=== PATIENT | female | born 2000 | race Caucasian/White ===

== ENCOUNTER 2021-03-06 18:24 | Emergency (ER) | payer MEDICAID ==
[~2021-03-06] VITALS: Ht 170.2 cm; Wt 47.0 kg
[2021-03-06] MEDS ORDERED: METOCLOPRAMIDE HCL 10MG/2ML VIAL IV STA (21:38)
[2021-03-06] MEDS ORDERED: VISCOUS LIDOCAINE 2% 15 ML UDC PO STA (21:38)
[2021-03-06] MEDS ORDERED: KETOROLAC 30MG/ML VIAL IV STA (21:38)
[2021-03-06] MEDS ORDERED: MAGNESIUM/ALUMINUM HYDROXIDE/SIMETHICONE 30ML UDC PO STA (21:38)
[2021-03-06] MEDS ORDERED: SODIUM CHLORIDE 0.9% 1,000 ML IV ONE (21:45)
[2021-03-06 21:56] LABS: BASOPHILS % 0.7 % (0.0-2.0); EOSINOPHILS % 0.3 % (0.0-5.0); HEMATOCRIT. 41.5 % (36.0-48.0); HEMOGLOBIN. 14.1 g/dL (12.0-16.0); MEAN CORPUSCULAR HEMOGLOBIN 30.4 pg (28.0-32.0); MEAN CORPUSCULAR VOLUME 89.4 fL (81.0-99.0); MONOCYTES % 4.9 % (2.0-8.0); NEUTROPHILS % 74.1 % (40.0-76.0); PLATELET 271 x1000/uL (130-400); RED BLOOD CELL COUNT 4.64 mill/uL (4.2-5.4); RED CELL DISTRIBUTION WIDTH 13.5 % (11.6-14.6)
[2021-03-06 22:03] LABS: CHLORIDE 107 mEq/L (98-107)
[2021-03-07 03:25] VITALS: BP 125/82
[2021-03-07] MEDS ORDERED: MAG-55 MT (03:25)
[2021-03-07] MEDS ORDERED: ONDA4TAB5 MT (03:25)
== END 2021-03-07 03:29 | disposition home or self-care (01) ==
LOC: ER 18:24
DX: R10.13 Epigastric pain (principal); R11.10 Vomiting, unspecified
CPT/HCPCS: 36415; 76700; 80053; 81025; 83690; 85025; 96361; 96374; 96375; 99284; J1885; J2765; J7030